=== PATIENT | female | born 1960 ===

== ENCOUNTER 2024-11-15 12:52 | Outpatient (RCR) | payer MEDICARE, SELFPAY | END 2024-11-15 23:59 | disposition home or self-care (01) | LOC: RPT 12:52 | PROVIDERS: ATTENDING PHYSICIAN Specialist; FAMILY PHYSICIAN Family Medicine | DX: G35 Multiple sclerosis (principal); Z73.6 Limitation of activities due to disability | CPT/HCPCS: 97110; 97163; 97530 ==

== ENCOUNTER 2024-12-15 14:04 | Outpatient (RCR) | payer MEDICARE, SELFPAY | END 2024-12-15 23:59 | disposition home or self-care (01) | LOC: RPT 14:04 | PROVIDERS: ATTENDING PHYSICIAN Specialist; FAMILY PHYSICIAN Family Medicine | DX: G35 Multiple sclerosis (principal); Z73.6 Limitation of activities due to disability; R26.2 Difficulty in walking, not elsewhere classified; R26.89 Other abnormalities of gait and mobility | CPT/HCPCS: 97110; 97112; 97530 ==

== ENCOUNTER 2025-01-17 15:59 | Outpatient (RCR) | payer MEDICARE, SELFPAY | END 2025-01-17 23:59 | disposition home or self-care (01) | LOC: RPT 15:59 | PROVIDERS: ATTENDING PHYSICIAN Specialist; FAMILY PHYSICIAN Family Medicine | DX: G35 Multiple sclerosis (principal); Z73.6 Limitation of activities due to disability; R26.2 Difficulty in walking, not elsewhere classified; R26.89 Other abnormalities of gait and mobility | CPT/HCPCS: 97110; 97112; 97530 ==

== ENCOUNTER 2025-02-08 07:35 | Outpatient (RCR) | payer MEDICARE, SELFPAY | END 2025-02-08 23:59 | disposition home or self-care (01) | LOC: RPT 07:35 | PROVIDERS: ATTENDING PHYSICIAN Specialist; FAMILY PHYSICIAN Family Medicine | DX: G35 Multiple sclerosis (principal); G35.D Multiple sclerosis, unspecified (principal); Z73.6 Limitation of activities due to disability; R26.2 Difficulty in walking, not elsewhere classified; R26.89 Other abnormalities of gait and mobility | CPT/HCPCS: 97110; 97112; 97116; 97530 ==

== ENCOUNTER 2025-03-07 11:37 | Outpatient (RCR) | payer MEDICARE, SELFPAY | END 2025-03-07 23:59 | disposition home or self-care (01) | LOC: RPT 11:37 | PROVIDERS: ATTENDING PHYSICIAN Specialist; FAMILY PHYSICIAN Family Medicine | DX: G35.D Multiple sclerosis, unspecified (principal); Z73.6 Limitation of activities due to disability; R26.2 Difficulty in walking, not elsewhere classified; R26.89 Other abnormalities of gait and mobility; G35 Multiple sclerosis | CPT/HCPCS: 97110; 97530 ==